=== PATIENT | male | born 1950 | race Caucasian/White ===

== ENCOUNTER → 2019-04-17 | Outpatient (CLI) | payer OTHER | END | disposition home or self-care (01) | LOC: LABPAT 11:40 | PROVIDERS: ATTEND Orthopaedic Surgery | DX: Z01.812 Encounter for preprocedural laboratory examination (principal) | CPT/HCPCS: 87070 ==

== ENCOUNTER 2019-05-18 08:11 | Day surgery (SDC) | payer OTHER ==
[2019-05-13 08:58] VITALS: BMI 30.8
--- NOTE | 2019-05-17 11:26 | HP ---
HISTORY AND PHYSICAL REASON FOR ADMISSION: Surgery scheduled for 05/18/2019 HISTORY OF PRESENT ILLNESS: Alli Cohen is a 69-year-old patient seen with symptomatic right knee osteoarthritis. After treatment options were discussed with him, he elected to proceed with right total knee arthroplasty. Consent was obtained. Medical clearance was provided by the [facility] in [place]. PAST MEDICAL HISTORY: Hypertension, hyperlipidemia, lymphoma. PAST SURGICAL HISTORY: Right knee arthroscopy. MEDICATIONS: Finasteride, simvastatin and Coumadin. ALLERGIES: None. SOCIAL HISTORY: He denies current tobacco use. PHYSICAL EXAMINATION: Evaluation of the right knee range of motion is -1 to 120. Tenderness medial joint line. Crepitus along the medial patellofemoral compartments. Pain with patellofemoral compression. Ligaments are stable. Hip rotation is without pain. Distal neurovascular exam is intact. RADIOGRAPHS: Right knee radiographs reveal severe osteoarthritic changes. IMPRESSION: 1. Right knee osteoarthritis. 2. Hypertension. 3. Hyperlipidemia. PLAN: Right total knee arthroplasty. Surgery is scheduled for 05/18/2019. MMODL / IJN: [id number] /
[~2019-05-18 08:11] MED LIST: ACETAMINOPHEN TAB 500 MG TAB PO ONE; DEXAMETHASONE SOD PHOSPHATE 10 MG/ML 1 ML VIAL IV ONE; LIDOCAINE 1% 20 ML VIAL (10MG/ML) FOR IV START INTRADERMA PRN; MELOXICAM 7.5 MG TAB PO ONE; MIDAZOLAM 2 MG/2 ML VIAL IV PRN; ONDANSETRON 4 MG/2 ML VIAL IVP ONE; ROPIVACAINE 246.25 MG, EPINEPHrine 0.5 MG, KETOROLAC 30 MG, cloNIDine HCL/PF 80 MCG, WA... MISCELLANE ONE; TRANEXAMIC ACID 1,000 MG in SODIUM CHLORIDE 0.9% 100 ML IVPB ONE; fentaNYL (PF) 50 MCG/ML 2 ML AMP IV PRN
[2019-05-18] MEDS: LACTATED RINGERS 1,000 ML IV SCH (09:16)
[2019-05-18 09:42] LABS: INR 1.3 (<1.2); Prothrombin Time 13.2 sec (9.0-12.0)
[2019-05-18] MEDS ORDERED: MIDAZOLAM 2 MG/2 ML VIAL IV ONE (09:47)
[2019-05-18] MEDS ORDERED: NEOSTIGMINE 1 MG/ML 10 ML VIAL ONE (10:08)
[2019-05-18] MEDS ORDERED: PROPOFOL 10 MG/ML 20 ML VIAL IV ONE (10:08)
[2019-05-18] MEDS ORDERED: TRANEXAMIC ACID 1,000 MG/10 ML VIAL ONE (10:08)
[2019-05-18] MEDS ORDERED: SUCCINYLCHOLINE CHLORIDE 100 MG/5 ML SYR IV ONE (10:08)
[2019-05-18] MEDS ORDERED: GLYCOPYRROLATE 0.2 MG/ML 2 ML VIAL ONE (10:08)
[2019-05-18] MEDS ORDERED: SODIUM CHLORIDE 0.9% 100 ML BAG ONE (10:08)
[2019-05-18] MEDS ORDERED: ROCURONIUM BROMIDE 10 MG/ML 5 ML VIAL IV ONE (10:08)
[2019-05-18] MEDS ORDERED: fentaNYL (PF) 50 MCG/ML 2 ML AMP ONE (10:08)
[2019-05-18] MEDS ORDERED: LIDOCAINE 1% INJ 10MG/ML (20 ML MDV) ONE (10:08)
[2019-05-18] MEDS ORDERED: ceFAZolin 3,000 MG in SODIUM CHLORIDE 0.9% IRRIGATIO 3,000 ML IRRIGATION ONE (10:38)
[2019-05-18] MEDS ORDERED: ROPIVACAINE 0.2%-NS ON-Q PUMP 1,090 MG, EMPTY PAIN BALL 1 EACH MISCELLANE PRN (10:47)
[2019-05-18] MEDS ORDERED: LACTATED RINGERS 1,000 ML IV ONE (10:59)
--- NOTE | 2019-05-18 11:52 | P.OP ---
Date of Procedure: 05/18/19 Preoperative Diagnosis: Right knee osteoarthritis Postoperative Diagnosis: Right knee osteoarthritis Procedure(s) Performed: Right total knee arthroplasty Implants: 1. Microport evolution size 6 right cemented femur 2. Microport evolution size 6 right cemented tibial baseplate 3. Microport evolution size 6 right CS 12 mm polyethylene tibial insert 4. Microport advance 35 mm all polyethylene cemented patella Anesthesia: GETA, regional (Adductor canal catheter), local Surgeon: Josue Johnson Coverstitch Binder #1: Sam Vazquez Estimated Blood Loss (ml): 40 Pathology: other (Bone) Condition: stable Disposition: PACU Indications for Procedure: 69-year-old patient seen with symptomatic right knee osteoarthritis. I discussed treatment options discussed, he elected to proceed with total knee arthroplasty. Operative Findings: see description of procedure Description of Procedure: Patient was taken to the operative suite after having an adductor canal catheter placed by the department of anesthesia for postoperative pain management. Patient underwent a general anesthetic by the department of anesthesia. Patient was given preoperative IV intake antibiotics and TXA. A well-padded tourniquet was placed about the right lower extremity. The lower extremity was then prepped and draped in the normal sterile orthopedic fashion. The extremity was elevated, a tourniquet was insufflated to 300. A standard anterior incision was made sharply through skin. Dissection was taken down through the subcutaneous soft tissues down to the extensor mechanism. A medial arthrotomy was performed, patella was everted and knee was flexed. There was advanced osteoarthritis noted. I introduced my distal intramedullary femoral drill. I then introduced the distal femoral cutting jig. Zhao RUIZ secured the cutting jig with 2 pins. I held retractors in position while Zhao RUIZ performed the distal femoral resection through the guide area we now removed her distal femoral cutting guide. We now placed our 4-in-1 femoral cutting block and positioned and it was secured with 2 pins by Zhao RUIZ while I held the block in position. The distal femoral finishing was now completed. A proximal tibial cutting guide was positioned. I held the guide in the appropriate position with both hands well Zhao RUIZ inserted stabilizing pins into the guide. P roximal tibial cut was made. We now placed a trial femoral component into position, along with an appropriate size tibial tray and insert. We now took the knee through range of motion and had full extension good flexion and good overall soft tissue balance noted. The patella was everted and stabilized with 2 towel clips held by Zhao RUIZ while I performed a flush with patellar quad tendon utilizing a fresh sawblade. We templated the patella, appropriate drill holes were made. An appropriate trial patella was positioned, knee was taken through full range of motion with the patella tracking very nicely. The trial patella was removed. Drill holes were made through the femoral component. All trial components were removed after marking off the appropriate rotation of the tibia. Retractors were now positioned along the proximal tibia. An appropriate keel punch was made with the appropriate size tibial guide by myself on Zhao RUIZ assisted by holding retractors. At this point appropriate size implants were chosen and opened. The joint was irrigated copiously with pulse lavage mechanical irrigation. The posterior capsule was infiltrated with local analgesic. The wound was irrigated with pulse lavage mechanical irrigation. We mixed antibiotic methylmethacrylate. We placed the knee into flexion. We placed multiple retractors assisted by Zhao RUIZ to expose the proximal tibia. Once the methyl methacrylate was ready, the tibial component was cemented into place removing any excess methylmethacrylate form by both myself and Zhao RUIZ. The femoral component was cemented into place removing the removing any excess methylmethacrylate performed by both myself and Zhao RUIZ. We then inserted the appropriate size polyethylene tibial insert. We made sure that it was locked into position. We took the knee into full extension, and then back in a flexion making sure we had removed any excess methylmethacrylate. The patellar component was then cemented down and secured with clamp. Excess methylmethacrylate removed. We kept the knee in full extension, patellar clamp in position until methylmethacrylate had hardened. Once it had hardened the patellar clamp was removed. The knee was taken through full range of motion. The patella tracked nicely. There was good soft tissue balancing. The tourniquet was now released. Additional hemostasis was achieved via electrocautery. A second gram of TXA was given. The wound again was irrigated with pulse lavage mechanical irrigation. The superficial soft tissues were infiltrated local analgesic. The extensor mechanism was repaired with Vicryl. We checked the repair with range of motion and it was stable. The subcutaneous soft tissues were repaired with Vicryl in layers. The skin was approximated with pernio/Dermabond. Sterile dressings were applied followed by loose web roll and Sean bandage. The patient was transferred to a bed, and taken to recovery in stable and satisfactory condition. Zhao RUIZ assisted with this complex procedure.
[2019-05-18] MEDS ORDERED: NALOXONE 0.4 MG/ML 1 ML VIAL IV PRN (11:53)
[2019-05-18] MEDS ORDERED: HYDROcodone/APAP 7.5-325MG 1 EACH TAB PO PRN (11:53)
[2019-05-18] MEDS ORDERED: ONDANSETRON 4 MG/2 ML VIAL IVP PRN (11:53)
[2019-05-18] MEDS ORDERED: HYDROcodone/APAP 5-325MG 1 EACH TAB PO PRN (11:53)
[2019-05-18] MEDS ORDERED: HYDROmorphone 0.5 MG/0.5 ML SYRINGE IVP PRN ×3 (11:53)
--- NOTE | 2019-05-18 12:44 | XR ---
EXAMINATION TYPE: XR knee limited RT DATE OF EXAM: 05/18/2019 COMPARISON: NONE TECHNIQUE: Two views submitted HISTORY: Post op FINDINGS: There is a prosthetic knee in near anatomic alignment. There is soft tissue edema and emphysema. IMPRESSION: 1. Postoperative change. Appears in near-anatomic alignment
[2019-05-18] MEDS: SODIUM CHLORIDE 0.9% 1,000 ML IV SCH (15:32)
--- NOTE | 2019-05-18 17:00 | P.CONS ---
History of Present Illness - Reason for Consult Consult date: 05/18/19 medical management Requesting physician: Josue Johnson - Chief Complaint right knee osteoarthritis - History of Present Illness 69 year old male with osteoarthritis, , ADAN on cpap, history of lymphoma , and venous thromboembolism on life long coumadin patient comes in for elective right total knee arthroplasty , after he failed conservative measures to control his right knee pain, and started to interfere with activities of daily living Patient tolerated procedure well denies any immediate observed postoperative, patient denies any chest pain or trouble breathing patient tolerated by mouth intake currently reports that pain is well tolerated. Patient reports that he transition to Lovenox at home about a week prior to surgery he had history of venous thromboembolism and is chronically on Coumadin. Denies any GI bleeding Review of Systems Pertinent positives as noted in HPI. All other systems were reviewed and are n egative Past Medical History Past Medical History: Cancer, Deep Vein Thrombosis (DVT), Hyperlipidemia, Prostate Disorder, Sleep Apnea/CPAP/BIPAP Additional Past Medical History / Comment(s): heart murmer, "borderline cholesterol", non hodgkins lymphoma, dvt x 2 History of Any Multi-Drug Resistant Organisms: None Reported Past Surgical History: Hernia Repair, Orthopedic Surgery Additional Past Surgical History / Comment(s): rt knee arthroscopy, 2 other donaldson rgeries rt knee for bone chips Past Anesthesia/Blood Transfusion Reactions: No Reported Reaction Past Psychological History: No Psychological Hx Reported Smoking Status: Former smoker Past Alcohol Use History: None Reported Additional Past Alcohol Use History / Comment(s): quit smoking age 22, smoked for 4 yrs Past Drug Use History: None Reported - Past Family History Mother Family Medical History: Cancer Medications and Allergies Home Medications Medication Instructions Recorded Confirmed Type Finasteride 5 mg PO BID 12/28/13 05/18/19 History Atorvastatin [Lipitor] 10 mg PO DAILY 05/13/19 05/18/19 History Enoxaparin Sodium 100 mg SQ DIRECTED 05/13/19 05/18/19 History Oxybutynin Chloride 5 mg PO QAM 05/13/19 05/18/19 History Warfarin [Coumadin] 5 mg PO HS 05/13/19 05/13/19 History Allergies Allergy/AdvReac Type Severity Reaction Status Date / Time No Known Allergies Allergy Verified 05/13/19 08:42 Physical Exam Vitals: Vital Signs Temp Pulse Pulse Resp BP Pulse Ox 05/18/19 15:48 98.0 F 57 L 16 168/80 96 05/18/19 15:00 57 L 16 156/85 96 05/18/19 14:00 56 L 14 153/71 92 L 05/18/19 13:30 57 L 16 166/84 94 L 05/18/19 13:00 47 L 14 145/71 94 L 05/18/19 12:45 46 L 14 134/71 98 05/18/19 12:20 96.8 F L 56 L 18 137/62 91 L 05/18/19 10:08 48 L 16 119/77 95 05/18/19 09:29 48 L 16 132/73 96 05/18/19 08:59 97.7 F 59 L 16 159/71 97 Intake and Output 05/18/19 05/18/19 05/18/19 06:59 14:59 22:59 Intake Total 851 Output Total 40 Balance 811 Intake: IV 851 Output: Estimated Blood Loss 40 Other: Weight 98.4 kg 98.4 kg Constitutional: No acute distress, conversant, pleasant Eyes: Anicteric sclerae, moist conjunctiva, no lid-lag Pupils equal round reactive to light ENMT: NC/AT Oropharynx clear, no erythema, exudates Neck: Supple, FROM, no masses, or JVD No carotid bruits No thyromegaly Lungs: Clear to auscultation Clear to percussion Normal respiratory effort, no accessory muscle use Cardiovascular: Heart regular in rate and rhythm, No murmurs, gallops, or rubs No peripheral edema Abdominal: Soft Nontender, no guarding, rebound or rigidity Abdomen moving with respiration Normoactive bowel sounds No hepatomegaly, No splenomegaly No palpable mass No abdominal wall hernia noted Skin: Normal temperature, tone, texture, turgor No induration No subcutaneous nodules No rash, lesions No ulcers Extremities: No digital cyanosis No clubbing Pedal pulses intact and symmetrical Radial pulses intact and symmetrical No calf tenderness Psychiatric: Alert and oriented to person, place and time Appropriate affect fair judgement Neuro Muscles Strength 5/5 in bilateral upper extremities and left lower extremity. Right lower extremity limited exam due to surgery Sensation to light touch grossly present throughout Cranial nerves II-XII grossly intact No focal sensory deficits Lymphatics: no palpable cervical or supraclavicular , or inguinal lymph nodes Results Labs: Abnormal Lab Results - Last 24 Hours (Table) 05/18/19 Range/Units 09:22 PT 13.2 H (9.0-12.0) sec INR 1.3 H (<1.2) Assessment and Plan Assessment: 69 year old male with osteoarthritis, , ADAN on cpap, history of lymphoma , and venous thromboembolism on life long coumadin patient comes in for elective right total knee arthroplasty , after he failed conservative measures to control his right knee pain, and started to interfere with activities of daily living medicine consutled for medical management Plan: elevated blood pressure with out hypertension mostly likely 2/2 surgery and pain monitor closely pain control PRN clonidine for systolic blood pressure >180 right knee osteoarthritis , post right total knee arthroplasty POD # zero management per orthopedic DVT PPX per orthopedics Nerve block in place history of venous thromboembolism history of lymphoma check CBC and BMP in AM Thank you for allowing us to participate in the care of this patient. Do not hesitate to contact us with questions. Someone can be reached from the [facility] hospitalist group at all hours of the day at [phone].
[2019-05-18] MEDS ORDERED: WARFARIN 5 MG TAB PO ONE (18:00)
[2019-05-18 19:58] VITALS: RESP 18
[2019-05-18] MEDS: FINASTERIDE 5 MG TAB PO SCH (20:08)
[2019-05-18] MEDS ORDERED: SENNOSIDES-DOCUSATE SODIUM 1 EACH TAB PO SCH (21:00)
[2019-05-19] MEDS: LACTATED RINGERS 1,000 ML IV SCH (05:37)
[2019-05-19] MEDS ORDERED: ENOXAPARIN 30 MG/0.3 ML SYRINGE SQ SCH (06:00)
[2019-05-19 07:48] LABS: INR 1.1 (<1.2); Prothrombin Time 11.6 sec (9.0-12.0)
[2019-05-19 07:51] VITALS: BP 149/74; PULSE 64; TEMP 98.8
--- NOTE | 2019-05-19 07:59 | P.ANPRN ---
Procedure Note - Anesthesia - Nerve Block Performed Right Adductor Canal Infusion Time Out Performed: Yes Date of Procedure: 05/18/19 Procedure Start Time: 09:47 Procedure Stop Time: 10:06 Location of Patient: PreOp Indication: Acute Post-Operative Pain, Requested by Surgeon Sedation Type: Sedate with meaningful contact maintained Preparation: Sterile Prep, Sterile Dressing Position: Supine Catheter: Indwelling Needle Types: Pajunk Needle Gauge: 21 Ultrasound used to visualize needle placement: Yes Ultrasound used to observe medication spread: Yes Resistance on Injection: Normal Image Stored and Saved: Yes Events: Uneventful and Well Tolerated (ropi .5% 20cc plus dexamethasone 4mg)
--- NOTE | 2019-05-19 08:00 | P.PN ---
Progress Note - Text 05/19 89am -year-old male status post total knee replacement by Dr. Johnson has an On-Q pump for postop pain control the solution running at 8 mL an hour with a VAS of 0. Patient has been able to get out of the bed and bulk plan to continue On-Q pump infusion
[2019-05-19 08:02] LABS: Basophils % (A) 0 %; Eosinophils % (A) 0 %; HCT 43.4 % (39.0-53.0); HGB 14.4 gm/dL (13.0-17.5); Lymphocytes # (A) 1.4 k/uL (1.0-4.8); Lymphocytes % (A) 11 %; MCH 31.2 pg (25.0-35.0); MCHC 33.3 g/dL (31.0-37.0); MCV 93.9 fL (80.0-100.0); Mean Platelet Volume 9.2; Monocytes # (A) 0.5 k/uL (0-1.0); Monocytes % (A) 4 %; Neutrophils # (A) 10.6 k/uL (1.3-7.7); Neutrophils % (A) 84 %; RBC 4.62 m/uL (4.30-5.90); RDW 13.6 % (11.5-15.5); WBC 12.6 k/uL (3.8-10.6)
[2019-05-19] MEDS ORDERED: ATORVASTATIN 10 MG TAB PO SCH (09:00)
[2019-05-19] MEDS ORDERED: OXYBUTYNIN CHLORIDE 5 MG TAB PO SCH (09:00)
[2019-05-19] MEDS: FINASTERIDE 5 MG TAB PO SCH (09:02)
[2019-05-19] MEDS: SODIUM CHLORIDE 0.9% 1,000 ML IV SCH (10:07)
[2019-05-19 10:20] LABS: Platelet Count 99 k/uL (150-450)
--- NOTE | 2019-05-19 12:06 | P.PN ---
Subjective Progress Note Date: 05/19/19 Principal diagnosis: Status post right total knee arthroplasty Patient evaluates at bedside, he's resting comfortably. He has multiple family members present. He's ambulate well with physical therapy at this time. He denies any chest pain, shortness of breath, fever or chills, nausea or vomiting. Objective - Vital Signs Vital signs: Vital Signs Temp 98.8 F 05/19/19 07:49 Pulse 64 05/19/19 07:49 Resp 18 05/19/19 07:49 BP 149/74 05/19/19 07:49 Pulse Ox 92 L 05/19/19 07:49 Intake & Output 05/18/19 05/19/19 05/19/19 18:59 06:59 18:59 Intake Total 851 800 Output Total 40 200 Balance 811 600 Weight 98.4 kg Intake: IV 851 Intake, IV Titration 800 Amount Lactated Ringers 1,000 ml 400 @ 20 mls/hr IV .Q24H DESHAUN Rx#:[id number] Sodium Chloride 0.9% 1, 400 000 ml @ 50 mls/hr IV . Q20H DESHAUN Rx#:[id number] Output: Urine 200 Estimated Blood Loss 40 Other: Voiding Method Urinal # Voids 1 - Exam Right lower extremity: Incision is clean, dry, and intact. The exofin fusion tape is in good condition. There is minimal soft tissue swelling and ecchymosis surrounding the medial and lateral aspects of the incision. Calf is soft, no tenderness with palpation. Plantar flexion, dorsiflexion, EHL, FHL are intact. Sensory exam to light touch throughout the extremity is intact, dorsal pedis pulses 2+. - Labs CBC & Chem 7: 05/19/19 06:58 Labs: Abnormal Lab Results - Last 24 Hours (Table) 05/19/19 Range/Units 06:58 WBC 12.6 H (3.8-10.6) k/uL Plt Count 99 L (150-450) k/uL Neutrophils # 10.6 H (1.3-7.7) k/uL Assessment and Plan Plan: Assessment: Postoperative day #1 status post right total knee arthroplasty Plan: Pain control, we'll discharge on [place] and tramadol GI and DVT prophylaxis, patient will resume Lovenox injections daily along with Coumadin daily, recheck INR scheduled for 05/22/2019 Wound care instructions discussed Home physical therapy and nursing after discharge Medical recommendations Plan for discharge home today Time with Patient: Less than 30
--- NOTE | 2019-05-19 12:11 | P.DS ---
Providers Date of admission: 05/18/2019 Expected date of discharge: 05/19/19 Attending physician: Josue Johnson Consults: 05/18/19 11:53 Consult Physician Routine Consulting Provider: Emily Sinha Consult Reason/Comments: Medical management Do you want consulting provider notified?: Yes Primary care physician: [facility] Hospital Course: Date of admission: 05/18/2019 Date of discharge: 05/19/2019 Admission diagnosis: Status post right total knee arthroplasty Discharge diagnosis: Same Attending physician: Dr. Johnson Surgical procedures: Right total knee arthroplasty Brief history: Patient is a 69-year-old male with a history of progressive primary right knee osteoarthritis. At this point patient has failed conservative treatment measures and has opted to proceed with a elective right total knee arthroplasty. Hospital course: Details of patient's surgery can be found in operative report. Patient tolerated the procedure well and was subsequently transported to orthopedic floor. Patient's orthopeidc and medical care was provided daily. Patient had daily laboratory tests performed for evaluation of overall blood counts. Patient had daily physical therapy to include strengthening range of motion as well as education with walker ambulation. [Patient had daily CPM usage as part of their physical therapy program.] Patient was treated with Lovenox and Coumadin for their postoperative DVT prophylaxis during their inpatient stay. Patient was noted to have a relatively uneventful postoperative course. Patient reported satisfactory pain control with oral pain medications by postoperative day 0. Patient showed satisfactory progress with physical therapy. Patient moved steadily through the program and had no difficulty meeting the goals by postoperative day 1. Given patient's otherwise satisfactory course and having met physical therapy goals, plan is to discharge patient [home] on postoperative day 1. Discharge condition/disposition: Patient will be discharged [home] in stable condition. Discharge medications: Instructions are given on resumption of patient's normal daily medications per primary care recommendation, in addition patient will be prescribed tramadol 50 mg, [place] 5 mg/325 mg, Colace 100 mg. Discharge instructions: 1. Wound care and infection precautions, [keep incision dry and covered while showering], no lotions, creams, moisturizers. No soaking, tubs, pools, hottubs. Do not scrub over the incision. 2. Weight-bear [as tolerated] with walker / cane until follow-up. 3. Ice and elevate when necessary. Do not exceed 20 minutes per hour with ice pack. 4. Utilize compression sleeve until seen at first follow up appointment. 5. Visiting nursing care. 6. Home physical therapy [including home CPM]. 7. Pain meds and anticoagulants per prescription. 8. Pain medication has potential to cause constipation. Increase oral fluid and fiber intake. Contact primary care provider if you have not had a bowel movement within 48 hours after discharge 9. No anti-inflammatory medication until discussed at first post operative visit, this including Motrin, Aleve, Mobic, Diclofenac. 10. Follow up in office at 2 weeks postop with Zhao Vazquez PA-C 11. Follow up with your primary care doctor 7-10 days after discharge. 12. Contact [facility] with any questions, . Procedures: Right total knee arthroplasty Patient Condition at Discharge: Good Plan - Discharge Summary Discharge Rx Participant: Yes New Discharge Prescriptions: New Docusate [Colace] 100 mg PO DAILY #30 capsule Hydrocodone/Acetaminophen [[place] 5-325] 1 - 2 each PO Q6HR PRN #40 tab PRN Reason: Pain traMADol HCl [Ultram] 50 mg PO Q6H PRN #28 tab PRN Reason: Pain No Action Finasteride 5 mg PO BID Atorvastatin [Lipitor] 10 mg PO DAILY Enoxaparin Sodium 100 mg SQ DIRECTED Warfarin [Coumadin] 5 mg PO HS Oxybutynin Chloride 5 mg PO QAM Discharge Medication List Finasteride 5 mg PO BID 12/28/13 [History] Atorvastatin [Lipitor] 10 mg PO DAILY 05/13/19 [History] Enoxaparin Sodium 100 mg SQ DIRECTED 05/13/19 [History] Oxybutynin Chloride 5 mg PO QAM 05/13/19 [History] Warfarin [Coumadin] 5 mg PO HS 05/13/19 [History] Docusate [Colace] 100 mg PO DAILY #30 capsule 05/19/19 [Rx] Hydrocodone/Acetaminophen [[place] 5-325] 1 - 2 each PO Q6HR PRN #40 tab 05/19/19 [Rx] traMADol HCl [Ultram] 50 mg PO Q6H PRN #28 tab 05/19/19 [Rx] Follow up Appointment(s)/Referral(s): Sam Vazquez PAC [PHYSICIAN [employer]CH[employer]IC] - 2 Weeks Activity/Diet/Wound Care/Special Instructions: [facility] to arrange home care. Home care order and op note faxed to [facility] ([phone].) Orthopedic Discharge Instructions: 1. Wound care and infection precautions, keep incision dry and covered while showering, no lotions, creams, moisturizers. No soaking, pools, hot tubs. Do not scrub over incision. 2. Weight-bear as tolerated with walker / cane until follow-up. 3. Ice and elevate when necessary. Do not exceed 20 minutes per hour with ice pack. 4. Utilize compression sleeve until seen at first follow up appointment. 5. Pain meds and anticoagulants per prescription. 6. Pain medication has potential to cause constipation. Increase oral fluid and fiber intake. Contact primary care provider if you have not had a bowel movement within 48 hours after discharge. 7. No anti-inflammatory medication until discussed at first post operative visit, this including Motrin, Aleve, Mobic, Diclofenac. 8. Follow up in office at 2 weeks postop with Zhao Vazquez PA-C 9. Follow up with your primary care doctor 7-10 days after discharge. 10. Contact [facility] with any questions, . Discharge Disposition: HOME WITH HOME HEALTH SERVICES
--- NOTE | 2019-05-19 13:38 | P.PN ---
Subjective Progress Note Date: 05/19/19 Principal diagnosis: follow up post operative care patient seen and examined , doing well, no new complaints participated with PT with no issues tolerating PO intake denies any chest pain or trouble breathing Objective - Vital Signs Vital signs: Vital Signs Temp 98.8 F 05/19/19 07:49 Pulse 64 05/19/19 07:49 Resp 18 05/19/19 07:49 BP 149/74 05/19/19 07:49 Pulse Ox 92 L 05/19/19 07:49 Intake & Output 05/18/19 05/19/19 05/19/19 18:59 06:59 18:59 Intake Total 851 800 Output Total 40 200 Balance 811 600 Weight 98.4 kg Intake: IV 851 Intake, IV Titration 800 Amount Lactated Ringers 1,000 ml 400 @ 20 mls/hr IV .Q24H DESHAUN Rx#:[id number] Sodium Chloride 0.9% 1, 400 000 ml @ 50 mls/hr IV . Q20H DESHAUN Rx#:[id number] Output: Urine 200 Estimated Blood Loss 40 Other: Voiding Method Urinal # Voids 1 - Exam Constitutional: vital signs stable, Not in acute distress, pleasant, conversant Lungs: Clear to auscultation bilaterally, clear to percussion, normal respiratory effort Cardiovascular: Regular rate and rhythm, no murmurs, no gallops, no rubs, no peripheral edema Gastrointestinal: Soft, no tenderness to palpation, no palpable hepatosplenomegally, bowel sounds positive Extremities: No digital cyanosis or clubbing, peripheral pulses palpable and equal , no calf muscle tenderness, right knee surgical dressing dry clean and intact Psych: Alert, oriented to place, person and time, appropriate affect, intact judgment Neuro: Cranial nerves II-XII grossly intact, no focal sensory deficits to touch - Labs CBC & Chem 7: 05/19/19 06:58 Labs: Abnormal Lab Results - Last 24 Hours (Table) 05/19/19 Range/Units 06:58 WBC 12.6 H (3.8-10.6) k/uL Plt Count 99 L (150-450) k/uL Neutrophils # 10.6 H (1.3-7.7) k/uL Assessment and Plan Assessment: 69 year old male with osteoarthritis, , ADAN on cpap, history of lymphoma , and venous thromboembolism on life long coumadin patient comes in for elective right total knee arthroplasty , after he failed conservative measures to control his right knee pain, and started to interfere with activities of daily living medicine consutled for medical management Plan: elevated blood pressure with out hypertension , resolved mostly likely 2/2 surgery and pain monitor closely pain control PRN clonidine for systolic blood pressure >180 right knee osteoarthritis , post right total knee arthroplasty POD # 1 management per orthopedic DVT PPX per orthopedics Nerve block in place history of venous thromboembolism, resume coumadin history of lymphoma stable from internal medicine standpoint for discharge
[2019-05-19] MEDS ORDERED: WARFARIN 5 MG TAB PO ONE (18:00)
== END 2019-05-19 15:36 | disposition home health service (06) ==
LOC: OR 08:11 → 4SSUR 15:08 → OR 05-19 15:36
PROVIDERS: ATTEND Orthopaedic Surgery
DX: M17.11 Unilateral primary osteoarthritis, right knee (principal); E78.5 Hyperlipidemia, unspecified; G47.33 Obstructive sleep apnea (adult) (pediatric); Z79.01 Long term (current) use of anticoagulants; Z79.899 Other long term (current) drug therapy; Z85.72 Personal history of non-Hodgkin lymphomas; Z87.891 Personal history of nicotine dependence; Z86.718 Personal history of other venous thrombosis and embolism; Z99.89 Dependence on other enabling machines and devices; Z98.890 Other specified postprocedural states
CPT/HCPCS: 97161; 64448; 76942; 85025; 85610 ×2; 88300; 73560; 27447; C1776; C1713; S0138 ×2; J2250; J0171; J1100; J2710; J0690 ×3; J2405; J2001; J3010; J1885; J1650; J2795; J0330; J2704; J0735